=== PATIENT | male | born 1970 | race Caucasian/White ===

== ENCOUNTER 2019-12-03 07:36 | Day surgery (SDC) | payer OTHER ==
[2019-12-03] MEDS ORDERED: PROPOFOL INJ 200 MG/20 ML VIAL IV ONE (07:51)
[2019-12-03 10:00] VITALS: BP 136/82
--- NOTE | 2019-12-03 13:05 | Operative Report ---
Operative Report DATE OF SURGERY: 12/03/19 Operative Report: Risk, benefits and alternatives of the procedure including the risk of bleeding, perforation requiring surgery have been explained to the patient in detail and informed consent has been obtained. Timeout was called. Propofol medication is administered. Rectal examination is done which did not reveal any masses, tears or fissures. An Olympus videoscope was introduced into the patient's rectum. It is carefully advanced all the way to the cecum. Prep was good. All segments visualized. Retroflexion maneuvers performed. PREOPERATIVE DIAGNOSIS: Colorectal cancer screening POSTOPERATIVE DIAGNOSIS: Colon polyp noted in the sigmoid status post snare polypectomy and retrieved. Internal hemorrhoids OPERATION: Colonoscopy with snare polypectomy SURGEON: RONNY VALADEZ ANESTHESIA: LMAC TISSUE REMOVED OR ALTERED: As noted above. COMPLICATIONS: None. ESTIMATED BLOOD LOSS: None. INTRAOPERATIVE FINDINGS: As noted above. PROCEDURE: Patient tolerated the procedure well. No immediate postprocedure complications are noted. Patient is discharged in good condition. Discharge date 12/03/2019. Discharge diet: Regular. Discharge activity: Regular. 2 to 3-week follow-up to discuss findings. Patient is instructed to call the office or proceed to the emergency room should there be any further problems or questions. Wait on the pathology. 3 to 5-year surveillance colonoscopy.
== END 2019-12-03 09:52 | disposition home or self-care (01) ==
LOC: END 07:36
PROVIDERS: ATTEND Internal Medicine Gastroenterology
DX: Z12.11 Encounter for screening for malignant neoplasm of colon (principal); Z87.891 Personal history of nicotine dependence; Z79.51 Long term (current) use of inhaled steroids; Z79.899 Other long term (current) drug therapy; D12.5 Benign neoplasm of sigmoid colon; K64.8 Other hemorrhoids
CPT/HCPCS: 45385; 88305 ×2; 00812; J2704; 812